=== PATIENT | male | born 1950 | race Caucasian/White ===

== ENCOUNTER → 2024-07-18 07:10 | Outpatient (REF) | payer MEDICARE, OTHER, SELFPAY | LOC: MRI 3T 07:10 | PROVIDERS: ATTENDING PHYSICIAN Specialist; FAMILY PHYSICIAN Internal Medicine | DX: G30.0 Alzheimer's disease with early onset (principal) | CPT/HCPCS: 70551 ==

== ENCOUNTER → 2024-08-09 07:52 | Outpatient (REF) | payer MEDICARE, OTHER, SELFPAY | LOC: RAD 07:52 | PROVIDERS: ATTENDING PHYSICIAN Specialist; FAMILY PHYSICIAN Registered Nurse; REFERRING PHYSICIAN Internal Medicine Clinical Cardiac Electrophysiology | DX: I63.311 Cerebral infarction due to thrombosis of right middle cerebral artery (principal) | CPT/HCPCS: 93880 ==

== ENCOUNTER 2024-12-28 16:49 | Inpatient (IN) | payer MEDICARE, OTHER, SELFPAY ==
[2024-12-28] VITALS (8 sets, daily range): BP systolic 137–158; BP diastolic 84–99; PULSE 75–78; BMI 28.2
[2024-12-28 13:25] LABS: Hematocrit 39.8 % (39.0-52.0); Hemoglobin 14.1 g/dL (13.0-18.0); Mean Corp Hgb Conc. 35.4 g/dL (33.0-37.0); Mean Corpuscular Volume 90.7 fL (80.0-94.0); Nucleated Red Blood Cells % 0 % (-); Platelet Count 173 10^3/uL (130-400); Red Cell Dist. Width 12.3 % (11.5-14.5)
--- NOTE | 2024-12-28 13:44 | ED.GENMED ---
History of Present Illness
General
Chief Complaint: Dizziness
Source: patient
Exam Limitations: none
Time Seen by Provider: 12/28/24 13:05
Nursing documentation reviewed up to this point in time: agreed with
History of Present Illness
History of Present Illness:
Note:
CHIEF COMPLAINT(S)
Lightheadedness and nausea
HISTORY OF PRESENT ILLNESS
The patient is a 74-year-old male who presents with a feeling of lightheadedness and nausea. He reports that these symptoms do not change with movement or positional changes. He has a significant history of heart problems since the age of 18, which
include episodes of atrial fibrillation, previously associated with chest pain. While he denies current chest pain, his notes he appears very pale. The patient also admits to not adhering to his prescribed medication regimen, having not taken
some doses for the past two weeks. He has had similar symptoms when in atrial fibrillation in the past years, during which he also experienced chest discomfort. On examination, he denies falls and current pain but expresses a general feeling of
being unwell.
ADDITIONAL HISTORY OBTAINED FROM SOURCES OTHER THAN THE PATIENT
The patients ex , who has been with him for 40 years, described his memory problems and affirmed his pale appearance.
CHRONIC MEDICAL CONDITIONS SIGNIFICANTLY AFFECTING CARE
- Chronic heart condition since the age of 18, including atrial fibrillation.
- Non-adherence to prescribed heart medications.
PHYSICAL EXAM
- General: The patient appears uncomfortable and pale.
- Ear, Nose, and Tongue: Pupils are round and reactive. No jugular venous distention observed.
- Cardiovascular: Irregular rhythm with regular rate.
- Respiratory: Lungs are clear bilaterally.
- Neurologic: The patient is alert and oriented to time, person, and place, but shows confusion regarding some events.
- Abdomen: Non-tender, non-distended.
- Extremities: No edema noted.
Nursing notes reviewed and vital signs reviewed.
PLAN
- Plan to perform a computed tomography scan of the head.
- Conduct blood tests to further evaluate the cause of the symptoms.
- Perform a rectal exam for further evaluation, although the patient is reluctant but willing to proceed.
DIFFERENTIAL DIAGNOSIS
The Differential Diagnosis includes, in no particular order and is not limited to:
- Atrial fibrillation
- Anemia
- Medication non-compliance
- Dehydration
- Electrolyte imbalance
- Orthostatic hypotension
- Transient ischemic attack
- Vestibular dysfunction
- Gastrointestinal bleeding
- Neurogenic causes (e.g., partial seizure)
CARE-UPDATE
12/28/24 - 15:26
The patient continues to experience dizziness, possibly related to his uncontrolled atrial fibrillation. Non-compliance with prescribed Eliquis has been reported by the patients ex-. A CT Head shows no acute findings. Admission is planned for
further evaluation and to address medication adherence issues.
Disposition:
SUMMARY OF ENCOUNTER
The patient, a 74-year-old male with a significant history of heart problems, was seen in the emergency department due to complaints of lightheadedness and nausea. These symptoms have been ongoing without a relation to movement or positional
changes. Past medical history suggests atrial fibrillation as a likely contributing factor, particularly given the patients non-compliance with his medication regimen over the past two weeks. Examination showed the patient appeared pale and
uncomfortable with an irregular heart rhythm but a regular rate. A computed tomography (CT) head scan conducted showed no acute findings. The patients noted memory problems and confirmed a pale appearance, supporting the history obtained.
DISPOSITION
Admit to hospice.
ASSESSMENT
The patient is experiencing dizziness likely secondary to uncontrolled atrial fibrillation due to medication non-compliance.
PLAN
The plan includes admission for further evaluation and addressing medication adherence issues, likely within a hospice setting.
INDEPENDENT REVIEW OF LABS AND INTERPRETATION OF TESTS
My independent interpretation of the CT head indicates no acute findings.
MEDICAL DECISION MAKING
- Number and Complexity of Problems Addressed: Chronic conditions affecting care include chronic atrial fibrillation and medication non-compliance. Differential diagnosis includes atrial fibrillation, anemia, electrolyte imbalance, and others.
- Data:
Category 1
Clinical information was obtained from an independent historian, the patients .
Category 2
My independent interpretation of CT head shows no acute findings.
-Risk:
Admission is appropriate to address the complexity and risk associated with the presenting complaint, the patients underlying comorbidities, and to manage medication adherence and cardiac issues in a supportive setting like hospice.
Past History
Past History
ED Past Medical History: Arrthythmia
ED Past Surgical History: None
Phy Exam
Physical Exam
Physical Exam:
.
Course
Orders/Labs/Results
Orders:
Orders
12/28/24 12:07
Electrocardiogram (*1) Urgent
Reason for Study: Vertigo / Dizzy
12/28/24 12:08
EKG- Treatment ONCE
12/28/24 13:16
Complete Blood Count/With Diff Urgent
Comprehensive Metabolic Panel Urgent
Troponin I Urgent
12/28/24 15:01
CT Head W/o Iv Contrast Urgent
Comment:
Reason For Exam: dizziness
Abnormal Lab Results
12/28/24
13:16
RBC 4.39 L 10^6/uL
(4.70-6.10)
MCH 32.1 H pg
(27.0-31.0)
Absolute Neuts (auto) 8.8 H 10^3/uL
(1.4-6.5)
Absolute Lymphs (auto) 0.4 L 10^3/uL
(1.2-3.4)
Neutrophils % 91.2 H %
(42.2-75.2)
Lymphocytes % 4.4 L %
(20.5-51.1)
Glucose 148 H mg/dl
(70-99)
Total Bilirubin 2.3 H mg/dl
(0.2-1.3)
12/28/24 13:16
12/28/24 13:16
Vital Signs
Initial and Last Documented VS:
Initial Vital Signs
Temp Pulse Resp BP Pulse Ox
97.4 F 78 16 149/88 99
12/28/24 12:06 12/28/24 12:06 12/28/24 12:06 12/28/24 12:06 12/28/24 12:06
Last Documented Vital Signs
Temp Pulse Resp BP Pulse Ox
97.4 F 68 24 137/96 99
12/28/24 12:06 12/28/24 13:15 12/28/24 13:15 12/28/24 13:04 12/28/24 13:44
*Pulse Oximetry
SaO2: 99
Oxygen Mode of Delivery: Room air
Patient hypoxic: no
*Critical Care Note
Total Time (30-74mins, 75-104mins- exclusive of procedures): Not Applicable
ED Attending Note
-
Portions of this chart may have been created with voice recognition software.� Occasional wrong word or��sound alike� substitutions may have occurred due to the inherent limitations of voice recognition software.
Discharge Plan
Departure
Patient Disposition: Admit
Date of Disposition: 12/28/24
Time of Disposition: 15:31
Admit to: Telemetry
Presentation/result/management discussed w/ accepting MD/DO: Hospitalist
Patient with high blood pressure during this ER visit?: Yes
Condition: Fair
Discharge Problem:
Dizziness, Atrial fibrillation
Prescriptions:
No Action
losartan 50 MG tablet
100 mg PO DAILY
amlodipine 5 MG tablet
5 mg PO HS
acetaminophen [Tylenol Extra Strength] 500 MG tablet
1,000 mg PO DAILYPRN PRN (Reason: mild pain,fever)
flecainide 100 MG tablet
100 mg PO BID
Eliquis 5 MG tablet
5 mg PO BID
donepezil 10 mg Tablet
10 mg PO HS
memantine 5 mg Tablet
10 mg PO BID
Referrals:
Arnaldo Bee CRNP [Family Provider, Internal Medicine]
Interventions
Interventions:
*Risk Screen - Suicide Last Done: 12/28/24 12:06
*General Assessment Last Done: 12/28/24 12:06
*Neglect/Abuse Screening Last Done: 12/28/24 12:06
*ED- Fall Risk Assessment Last Done: 12/28/24 12:06
*ED COVID-19 Vaccine History Last Done: 12/28/24 12:06
ED- Neurological Assessment Last Done: 12/28/24 13:26
ED- Cardiac Assessment Last Done: 12/28/24 13:26
Discharge Date and Time
Print Language: WALLISIAN
[2024-12-28 13:46] LABS: ALT (SGPT) 19 U/L (0-50); AST (SGOT) 22 U/L (17-59); Albumin 4.5 g/dl (3.5-5.0); Alkaline Phosphatase 83 U/L (38-126); Blood Urea Nitrogen 17 mg/dl (9-20); Calcium 9.8 mg/dl (8.4-10.2); Carbon Dioxide 22 mmol/L (22-30); Chloride 107 mmol/L (98-107); Glucose 148 mg/dl (70-99); Potassium 3.9 mmol/L (3.5-5.1); Sodium 136 mmol/L (135-145); Total Protein 6.8 g/dl (6.3-8.2); eGFR > 60.00
[2024-12-28 13:57] LABS: Troponin I < 0.012 ng/ml
--- NOTE | 2024-12-28 15:48 | HPS.HSE ---
Family Physician
-
Family Physician: MARCO A Mayer
Chief Complaint
-
dizzy
History of Present Illness
74-year-old male with past medical history of hypertension, dementia, anxiety, A-fib, who presents with a feeling of lightheadedness and nausea since this morning. Patient denied any spinning of the room. He reports that these symptoms do not
change with movement or positional changes. He complained of mild headache. he denies current chest pain, short of breath. Patient denied any fever, chills, patient denied any abdominal pain, vomiting or diarrhea. Patient denied dysuria
hematuria. concerned that patient is not taking his medication. She was on vacation for 2 weeks and did not think that he took his medication
EKG with A-fib with controlled heart rate. Admitting for further management
Medical History
Past Medical History
Past Medical History: Reports Other
Additional Past Medical History:
Hypertension
Dementia
Anxiety
A-fib
Past Surgical History: Reports None
Social History
Tobacco: Non-smoker
Alcohol: None
Drug: None
Personal:
Living: With Family
Family History
Family History: Not pertinent
Allergies / Home Medications
Allergies reflects when Allergies were last updated in [facility].
Home Medications with original date entered in [facility]
Allergy/Medication List:
Allergies
Allergy/AdvReac Type Severity Reaction Status Date / Time
No Known Allergies Allergy Unverified 06/23/19 14:17
Home Medications
acetaminophen 500 mg tablet (Tylenol Extra Strength) 1,000 mg PO DAILYPRN PRN mild pain,fever 06/23/19
amlodipine 5 mg tablet 5 mg PO HS 06/23/19
apixaban 5 mg tablet (Eliquis) 5 mg PO BID 06/23/19
flecainide 100 mg tablet 100 mg PO BID 06/23/19
losartan 50 mg tablet 100 mg PO DAILY 06/23/19
donepezil 10 mg tablet 10 mg PO HS 12/28/24
memantine 5 mg tablet 10 mg PO BID 12/28/24
Review of Systems
-
Constitutional: Reports No Symptoms
EENT: Reports No Symptoms
Respiratory: Reports No Symptoms
Cardiac: Reports No Symptoms
Abdomen/GI: Reports Nausea
: Reports No Symptoms
Musculoskeletal: Reports No Symptoms
Skin: Reports No Symptoms
Neurological: Reports Dizzy
Endocrine: Reports No Symptoms
Hematologic/Lymphatic: Reports No Symptoms
Psych: Reports No Symptoms
Physical Exam
Vital Signs
Vital Signs
Temp Pulse Resp BP Pulse Ox
97.4 F 68 24 137/96 99
12/28/24 12:06 12/28/24 13:15 12/28/24 13:15 12/28/24 13:04 12/28/24 13:44
Physical Exam
General: Well Developed, Well Nourished and No Apparent Distress
HEENT: NormoCephalic, Moist mucous membranes and Atraumatic
Respiratory: Clear
Cardiac: Irregular Rhythm; No Murmur or Rub
GI: Soft, Non Tender, Non Distended and Normal Bowel Sounds; No Organomegaly
Rectal: Deferred by Provider
Musculoskeletal: No Clubbing, No Cyanosis and No Edema
Skin: No Rash
Neuro: AO x 3 and Nonfocal/grossly intact
Psych: Calm
Laboratory Results
-
12/28/24 13:16
12/28/24 13:16
Laboratory Results
Total Bilirubin 2.3 mg/dl (0.2-1.3) H 12/28/24 13:16
AST 22 U/L (17-59) 12/28/24 13:16
ALT 19 U/L (0-50) 12/28/24 13:16
Alkaline Phosphatase 83 U/L (38-126) 12/28/24 13:16
Troponin I < 0.012 ng/ml 12/28/24 13:16
Data Reviewed
-
CT Scan: Report Reviewed by me
Lab Data: Labs Reviewed by me
Impression/Plan
-
# Dizziness likely secondary to atrial fibrillation
- Head CT with no acute findings
- EKG with atrial fibrillation with controlled heart rate
- Cardiology consulted for possible cardioversion
- Eliquis continued
- Flecainide continued
# Essential hypertension
- Norvasc, losartan continue with hold parameters
# Dementia
- Aricept, memantine continued
# DVT prophylaxis
- On Eliquis
#CODE STATUS
Full code
--- NOTE | 2024-12-28 17:07 | W.PN.UPDATE ---
Addendum entered and electronically signed by Mary Ann Cleary MD 12/28/24 17:28:
Patient has history multiple ablations. Had been in sinus over past year.
Original Note:
Update Note
Progress Note Update
This is an addendum to H&P written by YARD HAND Miley Gutierrez
I saw and examined the patient.
The YARD HAND's note was reviewed and I agree with the note.
Comment:
Mr. John Blackwood is a 74 yo man with hx BPH, paroxysmal afib on Eliquis, essential HTN, ADELAIDA presents to the ER with symptoms of lightheadedness.
Triage VS: T 97.4, P 78, RR 16, BP 149/88, SpO2 99%
On exam patient is awake, alert, in no distress; CV: irregular rhythm, lung clears, no LE swelling
LABS: WBC 9.7, Hg 14.1, PLT 173, Na 136, K+ 3.9, CO2 22, Cr 0.7, Glucose 148, T. Bili 2.3, AST 22, ALT 19, Trop < 0.012
EKG with atrial fibrillation, TWI lateral leads
HEAD CT
IMPRESSION:
No acute intracranial abnormality.
Symptomatic Atrial Fibrillation
-admit to telemetry
-continue KAIAKO KURA TUARUA Eliquis - unclear how compliant patient is with medication ( states missed doses)
-KAIAKO KURA TUARUA Flecainide
-Cardiology consulted
-NPO after MN
Essential HTN
-KAIAKO KURA TUARUA amlodipine, Losartan
ADELAIDA
Dementia
-KAIAKO KURA TUARUA Donepezil
DVT PPx: KAIAKO KURA TUARUA Eliquis
FULL CODE
[2024-12-28 21:11] LABS: Magnesium 2.2 mg/dl (1.6-2.3)
[2024-12-28] MEDS: NAMENDA 10 MG PO (21:11)
[2024-12-28] MEDS: ELIQUIS 5 MG PO (21:11)
[2024-12-28] MEDS: TAMBOCOR 100 MG PO (21:11)
[2024-12-28] MEDS: ARICEPT 10 MG PO (21:16)
[2024-12-28] MEDS: NORVASC 5 MG PO (21:17)
[2024-12-29] VITALS (8 sets, daily range): BP systolic 126–168; BP diastolic 76–137; PULSE 51–60; O2SAT 100; BMI 28.2
[2024-12-29 06:06] LABS: Blood Urea Nitrogen 15 mg/dl (9-20); Calcium 10.2 mg/dl (8.4-10.2); Carbon Dioxide 24 mmol/L (22-30); Chloride 108 mmol/L (98-107); Estimated Creatinine Clearance 112 ml/min; Glucose 106 mg/dl (70-99); Potassium 3.7 mmol/L (3.5-5.1); Sodium 138 mmol/L (135-145); eGFR > 60.00
[2024-12-29 07:33] LABS: Hepatitis C Antibody Negative (Negative)
[2024-12-29] MEDS: TAMBOCOR 100 MG PO ×2 (08:32→19:51)
[2024-12-29] MEDS: COZAAR 100 MG PO (08:32)
[2024-12-29] MEDS: NAMENDA 10 MG PO ×2 (08:32→19:51)
[2024-12-29] MEDS: ELIQUIS 5 MG PO ×2 (08:33→19:51)
--- NOTE | 2024-12-29 09:31 | CON.CAR ---
Addendum entered and electronically signed by Sourav Amato MD 12/29/24 16:12:
Echocardiogram reviewed showing normal LV function no high-grade valve disease
We will sign off, please recall as needed
Addendum entered and electronically signed by Sourav Amato MD 12/29/24 10:18:
I saw and examined the patient.
The Floorworker's note was reviewed and I agree with the note.
Comment: Briefly, 74-year-old man longstanding history of atrial fibrillation chronically on flecainide and Eliquis who presented with nausea and dizziness to [place] emergency department. He was found to be in A-fib and admitted for further
management.
By review of telemetry patient is in rate controlled atrial fibrillation, heart rates generally in the 60s and 70s
Reports that he is asymptomatic and is not experiencing any palpitations at this time
No evidence of decompensated heart failure based on history or physical exam
Would continue home flecainide and Eliquis
Agree with checking echo
Would favor outpatient follow-up with his primary mapping analyst at [place] with consideration for cardioversion at that time if he remains in atrial fibrillation
Rest per Lyndsay Jesus
Original Note:
Consultation
Consultation Request
Date/Time Consultation Requested: 12/29/2024
Date/Time Consultation Performed: 12/29/2024
Requesting Provider: Dr. Cleary
Performing Provider: Lyndsay Jesus PA-C for Dr. Amato
Reason for Consultation: Dizziness, Afib
Medical History
-
History of Present Illness:
HPI: is a 74 year old male with PMH of paroxysmal atrial fibrillation on chronic flecainide, HTN, HLD, and dementia. Presented to [facility] ER for evaluation of dizziness. He lives at home alone and woke up feeling nauseous and dizzy, prompting ER
evaluation. There was question of compliance with medications as he has h/o dementia and ex- was away for 2 weeks. On arrival to ER, he was noted to be in rate controlled atrial fibrillation. Patient and ex- note he is typically in SR and he
has had what sounds like similar symptoms in the past with afib but he tells me he has become less and less symptomatic with his atrial fibrillation over time. Workup in ER otherwise was unremarkable with normal head CT and labwork was unremarkable.
He was admitted for further workup and evaluation. He tells me this morning he has had no further lightheadedness or dizziness, but feels somewhat 'off' and 'fuzzy'. Does admit to memory issues. Remains in rate controlled atrial fibrillation. No
chest pain or SOB.
PMH:
Paroxysmal atrial fibrillation
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
Chronic flecainide AAD therapy
Chronic Eliquis AC
HTN
HLD
Dementia
ADELAIDA, no longer on CPAP
Past Medical History
Past Medical History: Other (In HPI)
Social History
Tobacco: Non-Smoker
Alcohol: None
Drug: None
Personal:
Living: Alone
Employment: Retired
Family History
Family History: Reviewed & Not Pertinent
Allergies / Home Medications
Allergy/AdvReac Type Severity Reaction Status Date / Time
No Known Allergies Allergy Unverified 06/23/19 14:17
�Medication �Instructions �Recorded �Confirmed �Type
acetaminophen 500 mg tablet 1,000 mg PO DAILYPRN PRN mild 06/23/19 12/28/24 History
(Tylenol Extra Strength) pain,fever
amlodipine 5 mg tablet 5 mg PO HS 06/23/19 12/28/24 History
apixaban 5 mg tablet (Eliquis) 5 mg PO BID 06/23/19 12/28/24 History
flecainide 100 mg tablet 100 mg PO BID 06/23/19 12/28/24 History
losartan 50 mg tablet 100 mg PO DAILY 06/23/19 12/28/24 History
donepezil 10 mg tablet 10 mg PO HS 12/28/24 12/28/24 History
memantine 5 mg tablet 10 mg PO BID 12/28/24 12/28/24 History
Review of Systems
-
History Source: Patient
All other systems: Negative unless noted
Physical Exam
Vital Signs
Temp Pulse Resp BP Pulse Ox
97.7 F 60 16 126/80 95
12/29/24 07:39 12/29/24 07:39 12/29/24 07:39 12/29/24 07:39 12/29/24 07:39
Lab Results
12/28/24 13:16
12/29/24 05:25
Troponin I < 0.012 ng/ml 12/28/24 13:16
Physical Exam
General: Well Developed, Well Nourished and No Apparent Distress
HEENT: Normocephalic and Moist Mucous Membranes
Respiratory: Clear and Non Labored Respirations
Cardiac: S1/S2 and Irregular Rhythm
Musculoskeletal: No Clubbing, No Cyanosis and No Edema
Skin: Warm and Dry
Neuro: Awake, Alert and Nonfocal/Grossly Intact
Psych: Calm
Impression / Plan
-
PCP: Dr. Murphy
Green House Manager: Dr. Nation ([facility])
Impression:
Presented with dizziness, nausea
Paroxysmal atrial fibrillation, rate controlled
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
Chronic flecainide AAD therapy
Chronic Eliquis AC
HTN
HLD
Dementia
ADELAIDA, no longer on CPAP
Echo 12/29/2024: Study pending.
Plan:
-Presented with dizziness and nausea. ECG on admission reviewed, w/ recurrent, rate controlled atrial fibrillation. Symptoms seem to be improved by report this AM.
-Remains in rate controlled afib on review of telemetry.
-Continues on Flecainide 100mg BID and Eliquis 100mg BID. Ex- reports concern w/ medication compliance at home. This has been mentioned in prior PCP notes as well.
-Given concern regarding compliance, no plan for CV at this time especially as he is rate controlled and symptoms seem to be improved this AM.
-TSH wnl at 1.47.
-K 3.7, replete. Mag 2.2.
-Check echo. By OP note, prior echo from 2013 showed preserved EF with mild MR.
-BP stable. Continue amlodipine and losartan. Orthostatic VS negative.
-Troponin negative. No chest pain.
-Will plan on continuing flecainide for afib at this time and follow up with Dr. Nation as OP to reassess. If remains in afib, could consider CV, however appears patient has not required CV despite recurrences of afib as OP since 2014.
-Will arrange follow up with primary mapping analyst.
HPI: is a 74 year old male with PMH of paroxysmal atrial fibrillation on chronic flecainide, HTN, HLD, and dementia. Presented to [facility] ER for evaluation of dizziness. He lives at home alone and woke up feeling nauseous and dizzy, prompting ER
evaluation. There was question of compliance with medications as he has h/o dementia and ex- was away for 2 weeks. On arrival to ER, he was noted to be in rate controlled atrial fibrillation. Patient and ex- note he is typically in SR and he
has had what sounds like similar symptoms in the past with afib but he tells me he has become less and less symptomatic with his atrial fibrillation over time. Workup in ER otherwise was unremarkable with normal head CT and labwork was unremarkable.
He was admitted for further workup and evaluation. He tells me this morning he has had no further lightheadedness or dizziness, but feels somewhat 'off' and 'fuzzy'. Does admit to memory issues. Remains in rate controlled atrial fibrillation. No
chest pain or SOB.
Data Reviewed
-
EKG: Tracing Personally Visualized and interpreted
CT Scan: Report Reviewed by me
Labs: Labs Reviewed by me
Old Records: Reviewed
[2024-12-29] MEDS: KCL 20 MEQ PO (11:44)
--- NOTE | 2024-12-29 12:57 | W.PN.HOSP.TC ---
Today's Communication/Plan
-
PT eval
MRI Brain
ECHO
Daughter requested a call from
Assessment / Plan
Assessment / Plan
74-year-old male presented with lightheadedness
CVS: S1-S2 normal
Chest: CTA B/L
Abdomen: Soft, NT / Bowel sounds present
Extremities: No edema, normal pulses
SENIOR DESIGN ENGINEERING SPECIALIST: Non focal exam
# Dizziness likely secondary to symptomatic atrial fibrillation
History of multiple ablations in the past been in sinus rhythm for the past several years
Head CT without any acute changes
Not orthostatic
Check Echo
MRI brain as daughter doesn't feel pt was not compliant with meds
Cardiology consulted for possible cardioversion
Continue Eliquis and flecainide
# Hypertension-continue Norvasc and losartan
# Dementia-continue Aricept and Memantine
# Sleep apnea-Doesn't use CPAP at home
# History of migraines
# DVT prophylaxis-Eliquis
# Full code
D/W RN
D/W Cards
D/W Daughter at bed side
Part of this note was created using voice recognition system. Occasional wrong word or��sound alike� substitutions may have inadvertently occurred due to the inherent limitations of voice recognition software. If noted kindly bring it to my
attention for correction.
Anticipated Discharge: Within 24 hours
Subjective/Interval History
-
Date of Service: December 29, 2024
Objective Data
-
Labs:
Laboratory Results
12/29/24
05:25
Sodium 138
Potassium 3.7
Chloride 108 H
Carbon Dioxide 24
BUN 15
Creatinine 0.6 L
Glucose 106 H
Calcium 10.2
Vital Signs:
Vital Signs
Temp Pulse Resp BP Pulse Ox
98.2 F 49 16 164/76 97
12/29/24 11:42 12/29/24 11:42 12/29/24 11:42 12/29/24 11:42 12/29/24 11:42
I&O
12/28/24 12/29/24 12/30/24
06:59 06:59 06:59
Intake Total 120 / 120
Output Total 250 / 250
Balance -130 / -130
[2024-12-29 15:32] LABS: Vitamin B12 414 pg/ml (239-931)
[2024-12-29] MEDS: ANTIVERT 12.5 MG PO ×2 (17:20→23:04)
[2024-12-29] MEDS: ARICEPT 10 MG PO (22:13)
[2024-12-29] MEDS: NORVASC 5 MG PO (22:13)
--- NOTE | 2024-12-30 01:21 | RESPNOTE ---
Pt refused CPAP. The pt stated they do not wear CPAP at home and does not want to wear one here. RN was made aware along with the Hospitalist. The hospitalist was spoken to about D/Cing the order and had agreed to D/C it.
[2024-12-30 03:30] VITALS: BP 154/85
[2024-12-30 07:15] VITALS: BP 147/69
[2024-12-30] MEDS: ELIQUIS 5 MG PO (09:23)
[2024-12-30] MEDS: NAMENDA 10 MG PO (09:23)
[2024-12-30] MEDS: TAMBOCOR 100 MG PO (09:23)
[2024-12-30] MEDS: COZAAR 100 MG PO (09:23)
[2024-12-30] MEDS: ANTIVERT 12.5 MG PO (09:23)
[2024-12-30] MEDS: LIPITOR 40 MG PO (09:24)
[2024-12-30 11:30] VITALS: BP 151/81
--- NOTE | 2024-12-30 13:13 | W.PN.HOSP.TC ---
Today's Communication/Plan
-
Discharge
Assessment / Plan
Assessment / Plan
74-year-old male presented with lightheadedness
CVS: S1-S2 normal
Chest: CTA B/L
Abdomen: Soft, NT / Bowel sounds present
Extremities: No edema, normal pulses
FRAMING MACHINE TENDER: Non focal exam
# Dizziness likely secondary to symptomatic atrial fibrillation
Back in SR now
History of multiple ablations in the past been in sinus rhythm for the past several years
Head CT without any acute changes
Not orthostatic
Echo-mildly dilated. Normal LV systolic function. EF 57%. Diastolic function indeterminate. Mild to moderate MR. Trace TR. PA pressure 15 to 20 mmHg
MRI brain with no stroke
Cardiology recommended outpatient cardiology follow-up
Continue Eliquis and flecainide
Meclizine as needed for symptoms
# Hypertension-continue Norvasc and losartan. I will not increase the dose. Outpatient follow-up with PCP
# Dementia-continue Aricept and Memantine
# Sleep apnea-Doesn't use CPAP at home
# History of migraines
# DVT prophylaxis-Eliquis
# Full code
D/W RN
D/W Daughter on the phone. She is going to set up caregivers through her insurance
Part of this note was created using voice recognition system. Occasional wrong word or��sound alike� substitutions may have inadvertently occurred due to the inherent limitations of voice recognition software. If noted kindly bring it to my
attention for correction.
Anticipated Discharge: Today
Subjective/Interval History
-
Date of Service: December 30, 2024
Objective Data
-
Vital Signs:
Vital Signs
Temp Pulse Resp BP Pulse Ox
97.5 F 55 16 151/81 99
12/30/24 11:30 12/30/24 11:30 12/30/24 11:30 12/30/24 11:30 12/30/24 11:30
I&O
12/29/24 12/30/24 12/31/24
06:59 06:59 06:59
Intake Total 120 / 120
Output Total 250 / 250
Balance -130 / -130
--- NOTE | 2024-12-30 13:18 | W.DS.TRANS ---
Addendum entered and electronically signed by Wendy De La Cruz MD 12/30/24 13:27:
Dictation- [id number]
Original Note:
DC Summary - [employer]
-
Discharge Instructions:
Sleep Apnea Risk Intermediate
Discharge Diagnosis/Procedures Dizziness
Hypertension
Dementia
History migraines
Sleep apnea
Diet As tolerated
Activity As tolerated
Driving Restrictions No driving
Other Services VN
Instructions:
Stand-Alone Forms:
Changes to Home Medications: Yes
Discharge Medications:
DC Medications w/original date entered in [employer]
acetaminophen 500 mg tablet (Tylenol Extra Strength) 1,000 mg PO DAILYPRN PRN mild pain,fever 06/23/19
amlodipine 5 mg tablet 5 mg PO HS Blood Pressure 06/23/19
apixaban 5 mg tablet (Eliquis) 5 mg PO BID Blood Clot Prevention/Tx 06/23/19
flecainide 100 mg tablet 100 mg PO BID Arrhythmia 06/23/19
donepezil 10 mg tablet 10 mg PO HS memory/cognition 12/28/24
memantine 5 mg tablet 10 mg PO BID memory/cognition 12/28/24
atorvastatin 40 mg tablet 40 mg PO DAILY cholesterol 12/29/24
losartan 100 mg tablet 100 mg PO DAILY Blood Pressure 12/29/24
meclizine 25 mg tablet 25 mg PO TID PRN dizziness #30 tabs 12/29/24
Home Medication Changes
meclizine new
Pending Results: No
== END 2024-12-30 14:02 | disposition home or self-care (01) | DRG 309 ==
LOC: 3 WEST ACU 16:49
PROVIDERS: Emergency Medicine; Registered Nurse; ADMITTING PHYSICIAN Student in an Organized Health Care Education/Training Program; ATTENDING PHYSICIAN Hospitalist; EMERGENCY PHYSICIAN Emergency Medicine; FAMILY PHYSICIAN Registered Nurse; OTHER PHYSICIAN Internal Medicine Cardiovascular Disease
DX: I48.0 Paroxysmal atrial fibrillation (principal); F03.94 Unspecified dementia, unspecified severity, with anxiety; I10 Essential (primary) hypertension; I34.0 Nonrheumatic mitral (valve) insufficiency; G47.33 Obstructive sleep apnea (adult) (pediatric); E78.5 Hyperlipidemia, unspecified; N40.0 Benign prostatic hyperplasia without lower urinary tract symptoms; G43.909 Migraine, unspecified, not intractable, without status migrainosus; Z79.01 Long term (current) use of anticoagulants; Z79.899 Other long term (current) drug therapy; Z91.148 Patient's other noncompliance with medication regimen for other reason
CPT/HCPCS: 70450; 70551; 80048; 80053; 82607; 83735; 84443; 84484; 85025; 86803; 93005; 93306; 97162; 99285

== ENCOUNTER → 2025-04-20 14:45 | Outpatient (REF) | payer MEDICARE, OTHER, SELFPAY | LOC: HWRCS 14:45 | PROVIDERS: ATTENDING PHYSICIAN Internal Medicine Cardiovascular Disease; FAMILY PHYSICIAN Registered Nurse | DX: I48.91 Unspecified atrial fibrillation (principal) | CPT/HCPCS: 93306 ==